=== PATIENT | female | born 1945 | race Caucasian/White ===

== ENCOUNTER 2020-02-22 11:05 | Emergency (ER) | payer MEDICARE, SELFPAY ==
[2020-02-22 11:15] VITALS: BP 166/101; PULSE 86; RESP 16; TEMP 36.6; O2SAT 99
--- NOTE | 2020-02-22 11:16 | ECG_ITS ---
Measurements Intervals [place] Rate: 68 P: 34 MN: 172 QRS: -29 QRSD: 109 T: 15 QT: 401 QTc: 428 Interpretive Statements SINUS RHYTHM RSR' IN V1 OR V2, CONSIDER RIGHT VENTRICULAR HYPERTROPHY OR RIGHT VCD BORDERLINE R WAVE PROGRESSION, ANTERIOR LEADS BORDERLINE T WAVE ABNORMALITY- INFERIOR LEADS BORDERLINE ECG Electronically Signed On 02-22-2020 12:46:55 CDT by Sudheer Morales D.O.
[2020-02-22 11:23] LABS: Glucose Point of Care 85 (65-105)
--- NOTE | 2020-02-22 11:57 | ED.DIZZY ---
HPI - Dizziness General Chief Complaint: Dizziness Stated Complaint: dizzy/nausea/light headed Source: patient Mode of arrival: ambulatory Limitations: no limitations History of Present Illness HPI Narrative: The obese patient, a non-smoker nondrinker on no medications, presents with dizziness. Patient indicates at least week long history of dizziness and improving true vertigo. 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 She now c/o of lightheadedness, head congestion preceded by true positional vertigo half a week ago. No fever, sore throat, loss of smell, earache, URI?sinusitis, vomiting/diarrhea/dehydration - she has nausea. No speech?visual changes, lateralizing weakness, head injury [she had a concussion several more years ago], no sneezing/wheezing, FMH, hearing loss-but she has had ongoing tinnitus. No precordial chest pain, palpitations, presyncope-but she does have a history of whitecoat hypertension. She repeatedly declines hospital referral for blood testing and imaging, after discussing possible causes [infectious, cerebrovascular, acquired etc.] Related Data Allergies Allergy/AdvReac Type Severity Reaction Status Date / Time shellfish derived Allergy Unknown Unknown Verified 11/19/19 09:39 shrimp Allergy Unknown unknown Verified 11/19/19 09:39 Sulfa (Sulfonamide Allergy Unknown unknown Verified 11/19/19 09:39 Antibiotics) ciprofloxacin AdvReac Intermediate Nausea and Verified 11/19/19 09:39 twitching metronidazole [From Flagyl] AdvReac Intermediate nausea Verified 11/19/19 09:39 Review of Systems Review of Systems: Narrative: General/Constitutional: No weight loss,fever Eyes: N0: Redness,discharge Ears/Nose/Throat: No: Epistaxis,ear discharge Respiratory: Denies: Hemoptysis Gastrointestinal: No Vomiting, Bleeding-rectal Skin: No Lumps, eruption Neurologic: No Focal Weakness,Sz Hematologic: Denies: Petechiae/Purpura Psychiatric: No: Suicida ideationl All Other Systems: Reviewed and Negative [facility], [facility] Family History Family History (Updated 01/09/19 @ 15:18 by DOCTOR UNKNOWN) Father Family history of liver disease Mother Family history of congestive heart failure Other Family history of allergic disorder Social History Social History Smoking status: Never smoker Alcohol intake: never Gender identity (if verbalized by the patient): Female Comments At time of signature, agree with nursing past medical, surgical, social and family history. There is no relevant family history pertinent to the presenting complaint Exam Narrative: Exam Narrative: General Appearance: Obese/ Well nourished appearing, No distress EYE: PERRLA, Conjunctiva clear, EOMI Neurological: A&O x3, CN II-X intact Ears: External ear normal Nose: Normal nose Mouth/Throat: Normal appearing, Normal lips Neck: Supple Respiratory: Airway patent, No respiratory distress Cardiovascular: RRR Abdomen: Soft, Non-tender, Musculoskeletal: Full ROM Skin: Warm, Dry Psychiatric: Normal mood, Normal affect Course Course Emergency Course: EKG: NSR , rate 68, LAD -30, HI 172ms , QRS 109ms BORDERLINE Vital Signs Vital signs: Vital Signs Temperature 98 F 02/22/20 11:15 Pulse Rate 86 02/22/20 11:15 Respiratory Rate 16 02/22/20 11:15 Blood Pressure 166/101 H 02/22/20 11:15 Pulse Oximetry 99 02/22/20 11:15 Temperature 98 F 02/22/20 11:15 Pulse Rate 86 02/22/20 11:15 Respiratory Rate 16 02/22/20 11:15 Blood Pressure 166/101 H 02/22/20 11:15 Pulse Oximetry 99 02/22/20 11:15 MDM - Dizziness MDM Narrative Medical decision making narrative: MDM Med Decision Making DATA REVIEWED LAB: ordered & reviewed ECG & OTHER: ordered & reviewed PMH RECORDS: reviewed
--- NOTE | 2020-02-22 12:04 | PC.NURSE ---
Dr Billingsley encouraged patint to go to the ER but refused.
== END 2020-02-22 12:00 | disposition home or self-care (01) ==
PROVIDERS: Emergency Provider Emergency Medicine; PCP Internal Medicine
DX: R42 Dizziness and giddiness (principal)
CPT/HCPCS: 93005; 99213; G0463

== ENCOUNTER 2022-03-16 09:37 | Outpatient (CLI) | payer MEDICARE, SELFPAY ==
[2022-03-16 11:48] LABS: Alanine Aminotransferase 11 U/L (6-35); Albumin Level 3.8 g/dL (3.5-5.1); Alkaline Phosphatase 78 U/L (38-126); Anion Gap 9 mmol/L (8-16); Aspartate Amino Transferase 19 U/L (14-36); Bilirubin,Total 0.5 mg/dL (0.2-1.3); Blood Urea Nitrogen 19 mg/dL (7-17); Calcium 9.1 mg/dL (8.4-10.2); Carbon Dioxide 25 mmol/L (22-30); Chloride 104 mmol/L (98-107); Cholesterol 202 mg/dL (0-200); Estimated Glomerular Filt Rate > 60; Glucose 97 mg/dL (65-110); HDL Direct 65 mg/dL; Potassium 3.9 mmol/L (3.4-5.0); Sodium 138 mmol/L (137-145); Triglycerides 95 mg/dL (<150)
[2022-03-16 11:52] LABS: Hemoglobin A1C 5.6 % (<5.7)
[2022-03-16 11:59] LABS: LDL Cholesterol Direct 92 mg/dL
[2022-03-16 12:22] LABS: Vitamin D 25 Hydroxy 24.1 ng/mL
== END 2022-03-16 09:38 | disposition home or self-care (01) ==
LOC: ANHLAB 09:41
PROVIDERS: PCP Internal Medicine; Visit Provider Internal Medicine
DX: E78.5 Hyperlipidemia, unspecified (principal); R73.01 Impaired fasting glucose; R76.8 Other specified abnormal immunological findings in serum; E55.9 Vitamin D deficiency, unspecified
CPT/HCPCS: 36415; 80053; 80061; 82306; 83036

== ENCOUNTER 2022-06-12 08:11 | Outpatient (CLI) | payer MEDICARE, SELFPAY ==
--- NOTE | ~2022-06-12 | XR_ITS ---
EXAMINATION: XR UGI w barium swallow DATE: 06/12/2022 08:40 INDICATION: Epigastric abdominal pain. TECHNIQUE: The patient drank thick barium, gas-producing crystals, and thin barium. Fluoroscopy of th e esophagus, stomach, and proximal small bowel was performed. Fluoroscopy exposure time was 0.4 minut es. The total number of images was 267. Total dose-area product was 2.196 Gy-cm^2. COMPARISON: None. FINDINGS: There is no mass or stricture of the esophagus. Esophageal motility is normal. There is no hiatal hernia. There was no gastroesophageal reflux with provocative maneuvers. The stomach and proxi mal small bowel show normal folding patterns. Surgical clips in the right upper quadrant are likely f rom cholecystectomy. IMPRESSION: 1. No etiology for the patient's symptoms. Reviewed, dictated and finalized at location A.
== END 2022-06-12 08:12 | disposition home or self-care (01) ==
PROVIDERS: PCP Internal Medicine; Visit Provider Nurse Practitioner
DX: R10.13 Epigastric pain (principal)
CPT/HCPCS: 74240

== ENCOUNTER 2023-04-26 08:48 | Outpatient (CLI) | payer MEDICARE, SELFPAY ==
[2023-04-26 09:32] LABS: Hematocrit 42.2 % (37.0-47.0); Hemoglobin 13.4 g/dL (12.0-15.0); Mean Corpuscular HGB Conc 31.8 g/dl (32-36); Mean Corpuscular Hemoglobin 29.8 pg (26-34); Mean Corpuscular Volume 93.8 fl (80-100); Mean Platelet Volume 10.9 fl (7.4-10.4); Platelet Count Result 224 k/mm3 (150-375); Red Cell Distribution Width 13.6 % (11.5-14.5); White Blood Count 7.3 K/mm3 (4.5-10.0)
[2023-04-26 10:01] LABS: Alanine Aminotransferase 16 U/L (6-35); Albumin Level 3.9 g/dL (3.5-5.1); Alkaline Phosphatase 77 U/L (38-126); Anion Gap 7 mmol/L (8-16); Aspartate Amino Transferase 22 U/L (14-36); Bilirubin,Total 0.5 mg/dL (0.2-1.3); Blood Urea Nitrogen 16 mg/dL (7-17); Calcium 8.8 mg/dL (8.4-10.2); Carbon Dioxide 24 mmol/L (22-30); Chloride 108 mmol/L (98-107); Cholesterol 210 mg/dL (0-200); Estimated Glomerular Filt Rate > 60; Glucose 107 mg/dL (65-110); HDL Direct 71 mg/dL; Sodium 139 mmol/L (137-145); Triglycerides 95 mg/dL (<150)
[2023-04-26 10:09] LABS: Hemoglobin A1C 5.6 % (<5.7)
[2023-04-26 10:12] LABS: LDL Cholesterol Direct 97 mg/dL
[2023-04-26 10:28] LABS: Vitamin D 25 Hydroxy 23.9 ng/mL
[2023-04-26 10:44] LABS: Hepatitis B Surface Antigen Negative (Negative)
[2023-04-26 10:50] LABS: HAV RESULT Negative (Negative); Hepatitis B Core IgM Result Negative (Negative)
[2023-04-26 11:01] LABS: Hepatitis C Virus Antibody Negative (Negative)
== END 2023-04-26 08:49 | disposition home or self-care (01) ==
PROVIDERS: PCP Family Medicine; Visit Provider Family Medicine
DX: E55.9 Vitamin D deficiency, unspecified (principal); E66.3 Overweight; E78.00 Pure hypercholesterolemia, unspecified; N39.41 Urge incontinence; R10.13 Epigastric pain; R73.01 Impaired fasting glucose; R76.8 Other specified abnormal immunological findings in serum
CPT/HCPCS: 36415; 80053; 80061; 80074; 82306; 83036; 85027

== ENCOUNTER 2023-05-28 14:32 | Outpatient (CLI) | payer MEDICARE, SELFPAY ==
--- NOTE | ~2023-05-28 | DEXA_ITS ---
Bone Density Report Name: SANTANA FOOTE Age: 77 Sex: Female Ethnicity: White Date of : 1945 Indication: postmenopausal; screening for osteoporosis; height loss; Referring Provider: JAKE RUVALCABA Study: Bone densitometry was performed. Exam Date: May 28, 2023 Accession number: [id number] Bone Density: Region BMD T-score Z-score Classification AP Spine(L1-L4) 1.168 1.1 3.5 Normal Femoral Neck (Left) 0.868 0.2 2.3 Normal Total Hip (Left) 1.030 0.7 2.5 Normal Femoral Neck (Right) 0.803 -0.4 1.7 Normal Total Hip (Right) 0.996 0.4 2.2 Normal Total Hip Mean 1.013 0.6 2.4 Normal World Health Organization criteria for BMD impression classify patients as: Normal (T-score at or above -1.0), Osteopenia (T-score between -1.0 and -2.5), or Osteoporosis (T-score at or below -2.5). 10-year Fracture Risk: FRAX not reported because: All T-scores for Spine Total, Hip Total, Femoral Neck at or above -1.0 Clinical Information Provided by Patient: Patient maximum height was 62 Menopause Age: 52 No regular weight bearing exercise Drinks caffeinated beverages Onset of menses at age 17 Number of children 2 Impression: The patient has normal bone mass. Discussion: BONE DENSITY IS ABOVE THE MINIMUM DESIRABLE LEVEL AT ALL SKELETAL SITES TESTED. This patient?s bone mineral density is above the minimum desirable level (T-score -1.0 or better) at all sites measured. The patient should follow a healthful lifestyle (good nutrition with adequate calcium and vitamin D, and appropriate weight-bearing exercise). Follow-Up: Consider repeating this study in 5 years or sooner if there is some new clinical indication. Reported by: RENO on 05/28/2023 2:55:00 PM. Reviewed, dictated and finalized at location [facility]
== END 2023-05-28 14:33 | disposition home or self-care (01) ==
LOC: ANHIMG 14:33
PROVIDERS: PCP Family Medicine; Visit Provider Family Medicine
DX: Z78.0 Asymptomatic menopausal state (principal)
CPT/HCPCS: 77080